=== PATIENT | male | born 1980 | race Caucasian/White ===

== ENCOUNTER 2022-08-11 16:35 | Inpatient (IN) ==
[2022-08-11] MEDS ORDERED: NS 1,000 ML IV 1,000 ML IV ONE (17:01)
--- NOTE | 2022-08-11 17:01 | DR.ABDMALE ---
HPI Time seen Time Seen by Provider: 08/11/22 17:00 PCP Primary Care Physician: ANTONIO HPI comment HPI Comment: PATIENT IS 41YR OLD MALE IN ER WITH CHIILS, FEVER, NAUSEA, VOMITING AND DIARRHEA WITH LEFT SIDED PAIN AND RUQ PAIN TIMES 4 DAYS. WORSE TODAY. P ATIENT IS WEAK AND TIRED. SLEEPING BUT FULLY AROUSABLE. DENIES SIMILAR SYMTOMS PREVIOUSLY. HAVING 10/10 SHARP PAIN. Complaint Chief Complaint Doctors Comments: LEFT SIDED PAIN, LIVER HURTING TIMES 4 DAYS WITH FEVER, CHILLS, NAUSEA, VOMITING AND DIARRHEA. Chief Complaint:: PT. C/O LEFT SIDED ADOMINAL PAIN X 4 DAYS WELL NAUSEA, DIARRHEA, FEVER, CHILLS. 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 COVID-19 Coronavirus risk:travel/contact w/high risk person: No Has patient experienced Coronavirus symptoms: Yes Coronavirus symptoms experienced: Fever Reviewed Nurses Notes Review: Yes Mode of arrival Mode of Arrival: Ambulatory Timing Onset of Chief Complaint: 08/07/22 PMH PMH Past Medical History: No Past Surgical History: Yes Surgical History: Ortho Surgery Past Surgical History Comment: LEFT LEG Family History History of Family Medical Conditions: Yes Family Medical History: Diabetes Mellitus, [place] and Coronary Artery Disease Social History Does patient currently use any type of tobacco product: No Have you used tobacco products in the last 12 months: No Type of Tobacco Use: None Does any household member use tobacco: No Alcohol Use: DAILY Do you use any recreational Drugs:: Yes (METH) Lives With: Family Lives Where: Home Travel Risk Coronavirus risk:travel/contact w/high risk person: No Has patient experienced Coronavirus symptoms: Yes Coronavirus symptoms experienced: Fever Infectious screening In the last 2 months have you had wt loss of >10#?: NO Have you had fever, night sweats or hemotysis?: No Have you traveled outside the country in the last 6 months?: No Isolation: Standard ROS Review of Systems Constitutional: Chills, Fever, Weakness, Fatigue and Loss of Appetite Eyes: No Symptoms Reported ENTM: negative Nose Discharge or Nose Congestion Respiratoy: negative Moist Cough, Short of Breath or Wheezing Cardiovascular: No Symptoms Reported; negative Chest Pain or Edema Gastrointestinal/Abdominal: Abdominal Pain, Diarrhea, Nausea and Vomiting Genitourinary: No Symptoms Reported; negative Dysuria Neurological: Weakness; negative Headache or Dizziness Musculoskeletal: No Symptoms Reported; negative Back Pain or Muscle Pain Integumentary: No Symptoms Reported Hematologic/Lymphatic: No Symptoms Reported Endocrine: Increased Thirst and Decreased Appetite; negative Increased Urine Psychiatric: No Symptoms Reported All Other Systems: Reviewed and Negative PE Vital Signs Vital Signs: Temp Pulse Resp BP BP Pulse Ox O2 Del Method 12/31/20 09:12 123/64 03/22/18 23:03 157/86 08/11/22 19:38 22 08/11/22 17:50 99.2 F 08/11/22 16:36 100.0 F H 122 H 22 107/67 98 Room Air General Limitations: No Limitations General Appearance: Alert and In No Apparent Distress Head Head Exam: Normal Inspection and Atraumatic Eyes Eye exam: Normal Appearance; negative Scleral Icterus or Conjunctival Injection ENT ENT Exam: Normal Exam, Normal Oropharynx, Normal External Ear Exam and TM's Normal Bilaterally Neck Neck Exam: Normal Inspection and Trachea Midline; negative Tenderness Chest Chest Inspection: Normal Inspection and Symmetric Chest Wall Rise; negative Tenderness Respiratory Respiratory Exam: Normal Lung Sounds Bilat; negative Accessory Muscle Use, Chest Wall Tenderness or Respiratory Distress Respiratory Exam: Bilateral: Clear to Auscultation Cardiovascular Cardiovascular Exam: Regular Rate, Normal Rhythm and Normal Heart Sounds; negative Systolic Murmur or Diastolic Murmur Abdominal Exam Abdominal Exam: Normal Bowel Sounds, Soft and Tenderness Abdominal Tenderness: Diffuse and Severe Rectal Rectal Exam: Deferred Back Back Exam: Normal Inspection; negative (R) CVA Tenderness or (L) CVA Tenderness Extremeties Extremities Exam: Normal Inspection and Normal Capillary Refill Exam: Male: Deferred Neurologic Neurological Exam: Alert and Oriented X3; negative Motor Sensory Deficit Psychiatric Psychiatric Exam: Normal Affect and Normal Mood Skin Skin Exam: Dry MDM Differential Diagnosis Differential Diagnosis: Cholcystitis, Cholelethiasis, Constipation, Diverticular disease, Gastritus/PUD, Gastroenteritis, Inflammatory BD, Pancreatitis, Urinary tract infection and Urolithiasis COURSE Treatment Treatment: SEE ORDERS DONE WHILE PATIENT WAS IN ER. LABS AND CT REPORT DISCUSSED WITH PATIENT. PATIENT WAS GIVEN ROCEPHIN 1GM IVPB, TYLENOL 1GM IVPB, NS 1L IV BOLUS AND PERCOCET 5MG PO WHILE HE WAS IN ER. PATIENT IS 41YR OLD MALE WITH UROSEPSIS. HE WILL BE ADMITTED TO HOSPITAL FOR FURTHER CARE. Consultation Consultation Comments: DISCUSSED PATIENT WITH DR. MCCORMACK. HE WILL ADMIT PATIENT. Education/Counseling Education/Counseling: Patient Educated On: Treatment and Diagnosis ROR Labs Reviewed Laboratory Results Reviewed?: Yes Result Diagrams: 08/11/22 16:58 08/11/22 16:58 Laboratory: WBC 25.1 X10^3/uL (3.6-10.0) H 08/11/22 16:58 RBC 4.26 X10^6/uL (4.7-6.0) L 08/11/22 16:58 Hgb 13.5 g/dL (13.5-18.0) 08/11/22 16:58 Hct 39.4 % (42.0-54.0) L 08/11/22 16:58 MCV 92.4 fL (80.0-100.0) 08/11/22 16:58 MCH 31.6 pg (27.0-34.0) 08/11/22 16:58 MCHC 34.2 g/dL (33.0-35.0) 08/11/22 16:58 RDW 12.5 % (11.6-16.5) 08/11/22 16:58 Plt Count 382 X10^3/uL (150.0-450.0) 08/11/22 16:58 Plt Count Comment Adequate (ADEQUATE) 08/11/22 16:58 MPV 7.4 fL (7.4-11.0) 08/11/22 16:58 Neut % (Auto) 91.4 % (42.0-75.0) H 08/11/22 16:58 Lymph % (Auto) 2.0 % (21.0-51.0) L 08/11/22 16:58 [place] % (Auto) 6.5 % (0.0-13.0) 08/11/22 16:58 Eos % (Auto) 0.0 % (0.9-2.9) L 08/11/22 16:58 Baso % (Auto) 0.1 % (0.2-1.0) L 08/11/22 16:58 Neut # (Auto) 23.0 x10^3/uL (2.2-4.8) H 08/11/22 16:58 Lymph # (Auto) 0.5 X10^3/uL (1.3-2.9) L 08/11/22 16:58 [place] # (Auto) 1.6 x10^3/uL (0.3-0.8) H 08/11/22 16:58 Eos # (Auto) 0.0 x10^3/uL (0.0-0.2) 08/11/22 16:58 Baso # (Auto) 0.0 X10^3/uL (0.0-0.1) 08/11/22 16:58 Absolute Nucleated RBC 0.0 /100WBC 08/11/22 16:58 Total Counted 100 08/11/22 16:58 Neutrophils % (Manual) 95 % (39-76) H 08/11/22 16:58 Band Neutrophils % 1 % (0-10) 08/11/22 16:58 Lymphocytes % (Manual) 4 % (13-43) L 08/11/22 16:58 Plt Morphology Comment Normal (NORMAL) 08/11/22 16:58 RBC Morphology Normal (NORMAL) 08/11/22 16:58 Sodium 127 mmol/L (136-145) L 08/11/22 16:58 Corrected Sodium 129 mmol/L (136-145) L 08/11/22 16:58 Potassium 3.9 mmol/L (3.5-5.1) 08/11/22 16:58 Chloride 90 mmol/L (98-107) L 08/11/22 16:58 Carbon Dioxide 27.6 mmol/L (21-32) 08/11/22 16:58 BUN 19 mg/dL (7-18) H 08/11/22 16:58 Creatinine 1.71 mg/dL (0.70-1.30) H 08/11/22 16:58 Est GFR (MDRD) Af Amer 58 (>60) L 08/11/22 16:58 Est GFR (MDRD) Non-Af 48 (>60) L 08/11/22 16:58 Glucose 171 mg/dL (65-99) H 08/11/22 16:58 Lactic Acid 2.2 mmol/L (0.4-2.0) H 08/11/22 18:26 Calcium 8.3 mg/dL (8.5-10.1) L 08/11/22 16:58 Corrected Calcium 9.1 mg/dL (8.5-10.1) 08/11/22 16:58 Total Bilirubin 0.50 mg/dL (0.2-1.0) 08/11/22 16:58 AST 20 Units/L (15-37) 08/11/22 16:58 ALT 27 Units/L (12-78) 08/11/22 16:58 Alkaline Phosphatase 139 Units/L (46-116) H 08/11/22 16:58 Total Protein 7.5 g/dL (6.4-8.2) 08/11/22 16:58 Albumin 3.0 g/dL (3.4-5.0) L 08/11/22 16:58 Globulin 4.5 g/dL (2.5-4.5) 08/11/22 16:58 Albumin/Globulin Ratio 0.7 Ratio (1.1-2.1) L 08/11/22 16:58 Amylase 17 Units/L (25-115) L 08/11/22 16:58 Lipase 34 Units/L (73-393) L 08/11/22 16:58 Specimen Type Clean catch urine 08/11/22 16:50 Urine Color Yellow (YELLOW) 08/11/22 16:50 Urine Appearance Cloudy (CLEAR) 08/11/22 16:50 Urine pH 6.0 (5.0 - 8.0) 08/11/22 16:50 Ur Specific [place] 1.015 (1.000-1.030) 08/11/22 16:50 Urine Protein 4+ (NEGATIVE) 08/11/22 16:50 Urine Glucose (UA) Negative (NEGATIVE) 08/11/22 16:50 Urine Ketones 2+ (NEGATIVE) 08/11/22 16:50 Urine Blood 4+ (NEGATIVE) 08/11/22 16:50 Urine Nitrite Positive (NEGATIVE) 08/11/22 16:50 Urine Bilirubin Negative (NEGATIVE) 08/11/22 16:50 Urine Urobilinogen 1+ (NORMAL) 08/11/22 16:50 Ur Leukocyte Esterase 3+ (NEGATIVE) 08/11/22 16:50 Urine RBC 5-10 /HPF (0-3) A 08/11/22 16:50 Urine WBC Tntc /HPF (0-5) A 08/11/22 16:50 Ur Squamous Epith Cells Rare /HPF (NEGATIVE) 08/11/22 16:50 Urine Bacteria Trace /HPF (NEGATIVE) 08/11/22 16:50 Urine Sperm Few /HPF (NEGATIVE) 08/11/22 16:50 Ur Culture Indicated? Yes/culture set up 08/11/22 16:50 SARS-CoV-2 (PCR) Negative (NEGATIVE) 08/11/22 18:03 Influenza Type A (PCR) Negative (NEGATIVE) 08/11/22 18:03 Influenza Type B (PCR) Negative (NEGATIVE) 08/11/22 18:03 RSV (PCR) Negative (NEGATIVE) 08/11/22 18:03 Opioid Opioid Risk Tool Age (Garret box if 16-45): Yes History of Preadolescent Sexual Abuse: No Total: 1 Total Score Risk Category: Low Risk Copyright: [place] predicting aberrant behaviors Discharge Plan Diagnosis Discharge Problem: Sepsis, Acute pyelonephritis, Abdominal pain, Acute dehydration Discharge Plan Patient Disposition: 09 ADMITTED INPATIENT Condition: Stable
[2022-08-11] MEDS ORDERED: PEPCID 20 MG VIAL 20 MG in NS 50 ML IV 50 ML IV ONE (17:02)
[2022-08-11 17:08] LABS: BILIRUBIN,URINE NEGATIVE (NEGATIVE); BLOOD/HEMOGLOBIN,URINE 4+ (NEGATIVE); GLUCOSE, URINE NEGATIVE (NEGATIVE); KETONES,URINE 2+ (NEGATIVE); LEUKOCYTE ESTERASE ,URINE 3+ (NEGATIVE); NITRITES,URINE POSITIVE (NEGATIVE); PROTEIN,URINE 4+ (NEGATIVE); UROBILINOGEN,URINE 1+ (NORMAL)
[2022-08-11] MEDS ORDERED: NS 1,000 ML IV 1,000 ML ONE (17:08)
[2022-08-11] MEDS ORDERED: PEPCID 20 MG VIAL ONE (17:08)
[2022-08-11] MEDS ORDERED: NS 50 ML IV 50 ML IV ONE (17:08)
[2022-08-11 17:13] LABS: BASOPHILS % (AUTO) 0.1 % (0.2-1.0); HEMATOCRIT 39.4 % (42.0-54.0); HEMOGLOBIN 13.5 g/dL (13.5-18.0); LYMPHOCYTES # (AUTO) 0.5 X10^3/uL (1.3-2.9); MEAN CORPUSCULAR HEMOGLOBIN 31.6 pg (27.0-34.0); MEAN CORPUSCULAR HGB CONC 34.2 g/dL (33.0-35.0); MEAN CORPUSCULAR VOLUME 92.4 fL (80.0-100.0); MEAN PLATELET VOLUME 7.4 fL (7.4-11.0); MONOCYTES # (AUTO) 1.6 x10^3/uL (0.3-0.8); MONOCYTES % (AUTO) 6.5 % (0.0-13.0); NEUTROPHILS % (AUTO) 91.4 % (42.0-75.0); RED BLOOD COUNT 4.26 X10^6/uL (4.7-6.0); RED CELL DISTRIBUTION WIDTH 12.5 % (11.6-16.5); WHITE BLOOD COUNT 25.1 X10^3/uL (3.6-10.0)
[2022-08-11 17:15] LABS: APPEARANCE,URINE CLOUDY (CLEAR); COLOR,URINE YELLOW (YELLOW)
[2022-08-11 17:16] LABS: BACTERIA,URINE TRACE /HPF (NEGATIVE); SPERM,URINE FEW /HPF (NEGATIVE); SQUAMOUS EPITHELIAL CELL,UR RARE /HPF (NEGATIVE)
[2022-08-11 17:22] LABS: CALCIUM 8.3 mg/dL (8.5-10.1); CARBON DIOXIDE 27.6 mmol/L (21-32); COR CA(FOR HYPOALB) 9.1 mg/dL (8.5-10.1); CREATININE 1.71 mg/dL (0.70-1.30); TOTAL PROTEIN 7.5 g/dL (6.4-8.2)
[2022-08-11 17:27] LABS: BAND NEUTROPHILS % 1 % (0-10); PLATELET MORPHOLOGY COMMENT NORMAL (NORMAL)
[2022-08-11] MEDS ORDERED: ROCEPHIN VIAL 1 GRAM 1 G in NS 100 ML IV 100 ML IV ONE (17:32)
[2022-08-11] MEDS ORDERED: ROCEPHIN VIAL 1 GRAM ONE (17:39)
--- NOTE | 2022-08-11 17:56 | CT ---
HISTORYC/O LEFT SIDED ADOMINAL PAIN X 4 DAYS WELL NAUSEA, DIARRHEA, FEVER, CHILLS. 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 Dose reduction techniques including Automated Exposure Control (AEC) and adjustment of mA and kV were utilized.FINDINGSThe lung bases are clear without effusion. The heart size is normal. The liver, gallbladder, pancreas, spleen, adrenal glands are normal. Both kidneys are normal in size and there is no stone or hydronephrosis on either side. The stomach is normal. There is no abnormal dilation of the small bowel. The appendix is not defined but there is no evidence for appendicitis. The large bowel is grossly unremarkable. Urinary bladder is relatively collapsed. The prostate gland is normal. There is no worrisome bone marrow lesion.IMPRESSIONUnremarkable CT of the abdomen and pelvis.Electronically signed by: Ethan Rashid (Aug 11, 2022 17:54:34)
[2022-08-11] MEDS ORDERED: OFIRMEV IV 1000 MG VIAL 1,000 MG/100 ML VIAL IV ONE ×2 (18:01→18:52)
[2022-08-11] MEDS ORDERED: PERCOCET TAB 5/325 MG PO ONE (19:29)
[2022-08-11] MEDS ORDERED: PERCOCET TAB 5/325 MG ONE (19:32)
[2022-08-11 20:49] LABS: INR 1.28 (0.8-1.3)
[2022-08-11 20:53] LABS: MAGNESIUM 1.5 mg/dL (2.0-2.9); PHOSPHORUS 2.6 mg/dL (2.6-4.7)
[2022-08-11] MEDS: THIAMINE HCL INJ IVP SCH (21:21)
[2022-08-11] MEDS: NS 1,000 ML IV 1,000 ML IV SCH (21:22)
[2022-08-11 21:31] VITALS: BMI 21.4
[2022-08-12] MEDS ORDERED: ZOSYN VIAL 4.5 GRAMS IV ONE (02:28)
[2022-08-12] MEDS ORDERED: NS 100 ML IV 100 ML ONE (02:32)
[2022-08-12] MEDS: ZOSYN VIAL 4.5 GRAMS 4.5 G in NS 100 ML IV + SPIKE MINIBAG* 100 ML IV SCH ×2 (02:33→05:40)
[2022-08-12 03:10] LABS: BASOPHILS % (AUTO) 0.1 % (0.2-1.0); HEMOGLOBIN 12.3 g/dL (13.5-18.0); LYMPHOCYTES # (AUTO) 0.6 X10^3/uL (1.3-2.9); LYMPHOCYTES % (AUTO) 2.9 % (21.0-51.0); MEAN CORPUSCULAR HEMOGLOBIN 30.9 pg (27.0-34.0); MEAN CORPUSCULAR HGB CONC 33.3 g/dL (33.0-35.0); MEAN CORPUSCULAR VOLUME 92.9 fL (80.0-100.0); MEAN PLATELET VOLUME 7.4 fL (7.4-11.0); MONOCYTES # (AUTO) 1.7 x10^3/uL (0.3-0.8); MONOCYTES % (AUTO) 7.8 % (0.0-13.0); NEUTROPHILS # (AUTO) 19.1 x10^3/uL (2.2-4.8); NEUTROPHILS % (AUTO) 89.2 % (42.0-75.0); RED BLOOD COUNT 3.99 X10^6/uL (4.7-6.0); RED CELL DISTRIBUTION WIDTH 13.1 % (11.6-16.5); WHITE BLOOD COUNT 21.5 X10^3/uL (3.6-10.0)
[2022-08-12 03:22] LABS: ALANINE AMINOTRANSFERASE 26 Units/L (12-78); ALBUMIN 2.6 g/dL (3.4-5.0); ALKALINE PHOSPHATASE 131 Units/L (46-116); ASPARTATE AMINO TRANSFERASE 21 Units/L (15-37); BLOOD UREA NITROGEN 21 mg/dL (7-18); CALCIUM 7.8 mg/dL (8.5-10.1); CARBON DIOXIDE 29.9 mmol/L (21-32); CHLORIDE 94 mmol/L (98-107); COR CA(FOR HYPOALB) 8.9 mg/dL (8.5-10.1); CREATININE 1.73 mg/dL (0.70-1.30); SODIUM 130 mmol/L (136-145); TOTAL PROTEIN 6.7 g/dL (6.4-8.2); eGFR NON BLACK RACES 47 (>60)
[2022-08-12 03:35] LABS: BAND NEUTROPHILS % 7 % (0-10); PLATELET MORPHOLOGY COMMENT NORMAL (NORMAL)
[2022-08-12] MEDS: NS 1,000 ML IV 1,000 ML IV SCH ×3 (05:20→20:36)
[2022-08-12] MEDS: PERCOCET TAB 5/325 MG PO PRN ×2 (05:41→12:31)
[2022-08-12] MEDS: THIAMINE HCL INJ IVP SCH ×2 (08:33→20:38)
[2022-08-12] MEDS: VSL#3 PO SCH (08:38)
[2022-08-12] MEDS ORDERED: NS 1,000 ML IV 1,000 ML IV ONE (08:48)
[2022-08-12] MEDS: ZOSYN VIAL 4.5 GRAMS 4.5 G in NS 100 ML IV 100 ML IV SCH ×2 (13:58→21:39)
[2022-08-12] MEDS ORDERED: MOTRIN TAB 800 MG PO PRN (15:58)
[2022-08-12] MEDS: TYLENOL 500 MG TAB EXTRA STRENGTH PO PRN (16:35)
[2022-08-12] MEDS ORDERED: ATIVAN INJ 2 MG VIAL ONE (16:46)
[2022-08-12] MEDS: ATIVAN INJ 2 MG VIAL IVP SCH ×2 (16:47→20:17)
[2022-08-12] MEDS: VANCOMYCIN IV *PREMIX 750 mg/150 ML BAG 750 MG/150 ML PIGGYBACK IV SCH (18:56)
[2022-08-13] MEDS: PERCOCET TAB 5/325 MG PO PRN ×3 (02:15→21:47)
[2022-08-13] MEDS: ZOSYN VIAL 4.5 GRAMS 4.5 G in NS 100 ML IV 100 ML IV SCH ×3 (05:20→21:52)
[2022-08-13] MEDS: TYLENOL 500 MG TAB EXTRA STRENGTH PO PRN ×2 (05:31→20:28)
[2022-08-13] MEDS: NS 1,000 ML IV 1,000 ML IV SCH ×3 (06:47→19:59)
[2022-08-13] MEDS ORDERED: ATIVAN INJ 2 MG VIAL IVP PRN (07:58)
[2022-08-13 08:03] LABS: BASOPHILS # (AUTO) 0.1 X10^3/uL (0.0-0.1); BASOPHILS % (AUTO) 0.5 % (0.2-1.0); EOSINOPHILS % (AUTO) 0.1 % (0.9-2.9); HEMATOCRIT 30.4 % (42.0-54.0); HEMOGLOBIN 10.4 g/dL (13.5-18.0); LYMPHOCYTES # (AUTO) 0.7 X10^3/uL (1.3-2.9); MEAN CORPUSCULAR HEMOGLOBIN 31.7 pg (27.0-34.0); MEAN CORPUSCULAR HGB CONC 34.3 g/dL (33.0-35.0); MEAN CORPUSCULAR VOLUME 92.4 fL (80.0-100.0); MEAN PLATELET VOLUME 8.6 fL (7.4-11.0); MONOCYTES # (AUTO) 1.5 x10^3/uL (0.3-0.8); MONOCYTES % (AUTO) 8.8 % (0.0-13.0); NEUTROPHILS % (AUTO) 86.6 % (42.0-75.0); RED BLOOD COUNT 3.29 X10^6/uL (4.7-6.0); RED CELL DISTRIBUTION WIDTH 13.2 % (11.6-16.5); WHITE BLOOD COUNT 17.4 X10^3/uL (3.6-10.0)
[2022-08-13 08:10] LABS: ALANINE AMINOTRANSFERASE 37 Units/L (12-78); ALBUMIN 2.1 g/dL (3.4-5.0); ALKALINE PHOSPHATASE 151 Units/L (46-116); ASPARTATE AMINO TRANSFERASE 60 Units/L (15-37); BLOOD UREA NITROGEN 25 mg/dL (7-18); CALCIUM 7.8 mg/dL (8.5-10.1); CARBON DIOXIDE 23.2 mmol/L (21-32); CHLORIDE 99 mmol/L (98-107); COR CA(FOR HYPOALB) 9.3 mg/dL (8.5-10.1); CREATININE 1.82 mg/dL (0.70-1.30); SODIUM 129 mmol/L (136-145); TOTAL PROTEIN 5.8 g/dL (6.4-8.2); eGFR NON BLACK RACES 44 (>60)
[2022-08-13] MEDS: VANCOMYCIN IV *PREMIX 750 mg/150 ML BAG 750 MG/150 ML PIGGYBACK IV SCH (08:55)
[2022-08-13] MEDS: THIAMINE HCL INJ IVP SCH ×2 (08:59→20:39)
[2022-08-13] MEDS: VSL#3 PO SCH (08:59)
[2022-08-13] MEDS ORDERED: NS 1,000 ML IV 1,000 ML IV ONE (09:25)
[2022-08-14] MEDS: ZOSYN VIAL 4.5 GRAMS 4.5 G in NS 100 ML IV 100 ML IV SCH (05:27)
[2022-08-14] MEDS: NS 1,000 ML IV 1,000 ML IV SCH (05:27)
[2022-08-14 05:59] LABS: BASOPHILS % (AUTO) 0.3 % (0.2-1.0); EOSINOPHILS # (AUTO) 0.1 x10^3/uL (0.0-0.2); EOSINOPHILS % (AUTO) 0.4 % (0.9-2.9); HEMATOCRIT 32.5 % (42.0-54.0); HEMOGLOBIN 11.1 g/dL (13.5-18.0); LYMPHOCYTES # (AUTO) 1.2 X10^3/uL (1.3-2.9); LYMPHOCYTES % (AUTO) 8.4 % (21.0-51.0); MEAN CORPUSCULAR HEMOGLOBIN 31.8 pg (27.0-34.0); MEAN CORPUSCULAR HGB CONC 34.3 g/dL (33.0-35.0); MEAN CORPUSCULAR VOLUME 92.9 fL (80.0-100.0); MEAN PLATELET VOLUME 8.5 fL (7.4-11.0); MONOCYTES # (AUTO) 1.1 x10^3/uL (0.3-0.8); MONOCYTES % (AUTO) 7.6 % (0.0-13.0); NEUTROPHILS # (AUTO) 12.3 x10^3/uL (2.2-4.8); NEUTROPHILS % (AUTO) 83.3 % (42.0-75.0); RED CELL DISTRIBUTION WIDTH 13.4 % (11.6-16.5); WHITE BLOOD COUNT 14.8 X10^3/uL (3.6-10.0)
[2022-08-14 06:27] LABS: ALANINE AMINOTRANSFERASE 28 Units/L (12-78); ALBUMIN 1.7 g/dL (3.4-5.0); ALKALINE PHOSPHATASE 185 Units/L (46-116); ASPARTATE AMINO TRANSFERASE 38 Units/L (15-37); BLOOD UREA NITROGEN 23 mg/dL (7-18); CALCIUM 7.7 mg/dL (8.5-10.1); CHLORIDE 104 mmol/L (98-107); COR CA(FOR HYPOALB) 9.5 mg/dL (8.5-10.1); CREATININE 1.71 mg/dL (0.70-1.30); SODIUM 132 mmol/L (136-145); TOTAL PROTEIN 5.8 g/dL (6.4-8.2); eGFR NON BLACK RACES 48 (>60)
[2022-08-14] MEDS: VSL#3 PO SCH (09:10)
[2022-08-14] MEDS: THIAMINE HCL INJ IVP SCH (09:10)
[2022-08-14 12:27] VITALS: BP 146/68
[2022-08-15] MEDS ORDERED: PHARMACY COMMENT IV NR (08:30)
[2022-08-19 06:38] LABS: ESTROGENS TOTAL 38.8 pg/mL (19.0-69.0)
== END 2022-08-14 10:50 | disposition left against medical advice (07) | DRG 872 ==
LOC: ER 16:35 → MED/SURG 19:55
PROVIDERS: ADMIT Obstetrics & Gynecology Obstetrics; ATTEND Obstetrics & Gynecology Obstetrics
DX: Z53.29 Procedure and treatment not carried out because of patient's decision for other reasons; R79.1 Abnormal coagulation profile; R19.7 Diarrhea, unspecified; E87.1 Hypo-osmolality and hyponatremia; A41.51 Sepsis due to Escherichia coli [E. coli]; Z66 Do not resuscitate; E86.0 Dehydration; B96.29 Other Escherichia coli [E. coli] as the cause of diseases classified elsewhere; R10.84 Generalized abdominal pain; N10 Acute pyelonephritis; Z20.822 Contact with and (suspected) exposure to COVID-19; R11.2 Nausea with vomiting, unspecified